=== PATIENT | male | born 1940 | race Caucasian/White ===

== ENCOUNTER 2019-01-07 13:37 | Inpatient (IN) ==
[2019-01-07] MEDS ORDERED: SODIUM CHLORIDE 0.9% 1,000 ML IV STA (14:23)
[2019-01-07] MEDS ORDERED: ONDANSETRON 4 MG/2 ML VIAL IV STA (14:23)
[2019-01-07 14:46] LABS: Basophils % 0.5 % (0.0-0.8); Eosinophils # 0.1 10*3/uL (0.0-0.87); Eosinophils % 1.6 % (0.00-10.9); Hematocrit 40.7 VOL% (42.0-52.0); Hemoglobin 13.4 GM/DL (14.0-18.0); Immature Granulocytes % 0.2 %; Immature Granulocytes Absolute 0.01 #; Lymphocytes # 0.7 10*3/uL (1.4-4.0); Lymphocytes % 10.4 % (21.2-54.2); Mean Corpuscular HGB Conc 32.9 GM/DL (32-36); Mean Corpuscular Volume 90.4 FL (87-102); Mean Platelet Volume 9.7 FL (9.6-12.0); Monocytes % 9.9 % (1.7-12.7); Neutrophils % 77.4 % (38.7-73.9); Platelet Count 229 T/CUMM (130-400); Red Cell Distribution Width 14.9 % (9.3-17.3); White Blood Count 6.4 T/CUMM (4-12)
[2019-01-07 15:03] LABS: Albumin 2.4 G/DL (3.4-5.0); Bilirubin,Total 0.6 MG/DL (0.2-1.0); Calcium 9.1 MG/DL (8.5-10.1)
[2019-01-07] MEDS: SODIUM CHLORIDE 0.9% 1,000 ML IV SCH (16:57)
[2019-01-07] MEDS ORDERED: PROCHLORPERAZINE 10 MG TABLET PO PRN (19:28)
[2019-01-07] MEDS ORDERED: diphenhydrAMINE CAP 25 MG CAPSULE PO PRN (19:28)
[2019-01-07] MEDS: ASPIRIN 325 MG TABLET PO SCH (20:40)
[2019-01-07] MEDS: ATORVASTATIN 40 MG TABLET PO SCH (20:40)
[2019-01-07] MEDS: ONDANSETRON 4 MG/2 ML VIAL IV PRN (20:41)
[2019-01-07] MEDS: CLOPIDOGREL 75 MG TABLET PO SCH (20:41)
[2019-01-08] MEDS: ONDANSETRON 4 MG/2 ML VIAL IV PRN ×3 (01:05→14:12)
[2019-01-08] MEDS: SODIUM CHLORIDE 0.9% 1,000 ML IV SCH ×3 (02:09→20:32)
[2019-01-08 04:20] LABS: Basophils % 0.6 % (0.0-0.8); Eosinophils # 0.2 10*3/uL (0.0-0.87); Eosinophils % 3.8 % (0.00-10.9); Hematocrit 37.3 VOL% (42.0-52.0); Immature Granulocytes Absolute 0.05 #; Lymphocytes # 0.8 10*3/uL (1.4-4.0); Lymphocytes % 16.9 % (21.2-54.2); Mean Corpuscular HGB Conc 32.2 GM/DL (32-36); Mean Corpuscular Volume 91.2 FL (87-102); Monocytes % 14.3 % (1.7-12.7); Neutrophils % 63.4 % (38.7-73.9); Platelet Count 200 T/CUMM (130-400); Red Blood Count 4.09 MC/CUMM (3.8-5.5); Red Cell Distribution Width 14.8 % (9.3-17.3)
[2019-01-08 04:55] LABS: Albumin 2.3 G/DL (3.4-5.0); Bilirubin,Total 0.7 MG/DL (0.2-1.0); Calcium 8.6 MG/DL (8.5-10.1); Osmolality,Calculated 275.5 MOS/KG (273-304); Total Protein 6.4 G/DL (6.4-8.3)
[2019-01-08] MEDS: PANTOPRAZOLE 40 MG TABLET PO SCH (09:27)
[2019-01-08] MEDS: FLUCONAZOLE 100 MG TABLET PO SCH (09:27)
[2019-01-08] MEDS ORDERED: PROCHLORPERAZINE IV ONE (20:00)
[2019-01-08] MEDS ORDERED: DEXAMETHASONE IV ONE (20:00)
[2019-01-08] MEDS ORDERED: SODIUM CHLORIDE 0.9% IV ONE (20:00)
[2019-01-08] MEDS: ASPIRIN 325 MG TABLET PO SCH (20:32)
[2019-01-08] MEDS: CLOPIDOGREL 75 MG TABLET PO SCH (20:32)
[2019-01-08] MEDS: ATORVASTATIN 40 MG TABLET PO SCH (20:32)
[2019-01-09] MEDS: SODIUM CHLORIDE 0.9% 1,000 ML IV SCH (06:36)
[2019-01-09 08:20] LABS: Basophils % 0.6 % (0.0-0.8); Eosinophils # 0.2 10*3/uL (0.0-0.87); Eosinophils % 3.4 % (0.00-10.9); Hematocrit 34.1 VOL% (42.0-52.0); Hemoglobin 11.1 GM/DL (14.0-18.0); Immature Granulocytes % 0.4 %; Immature Granulocytes Absolute 0.02 #; Lymphocytes # 0.5 10*3/uL (1.4-4.0); Lymphocytes % 9.9 % (21.2-54.2); Mean Corpuscular HGB Conc 32.6 GM/DL (32-36); Mean Corpuscular Volume 91.7 FL (87-102); Mean Platelet Volume 9.8 FL (9.6-12.0); Monocytes % 10.3 % (1.7-12.7); Neutrophils % 75.4 % (38.7-73.9); Platelet Count 172 T/CUMM (130-400); Red Blood Count 3.72 MC/CUMM (3.8-5.5); Red Cell Distribution Width 14.8 % (9.3-17.3); White Blood Count 4.8 T/CUMM (4-12)
[2019-01-09 08:32] LABS: Calcium 8.3 MG/DL (8.5-10.1); Osmolality,Calculated 274.5 MOS/KG (273-304)
[2019-01-09] MEDS ORDERED: DEXT 5% NACL 0.45% KCL 20 MEQ 20 MEQ/1,000 ML BAG IV SCH (09:00)
[2019-01-09] MEDS: PANTOPRAZOLE 40 MG TABLET PO SCH (09:43)
[2019-01-09] MEDS: FLUCONAZOLE 100 MG TABLET PO SCH (09:43)
[2019-01-09] MEDS ORDERED: ENOXAPARIN 30 MG/0.3 ML SYRINGE SUBCUT SCH (11:00)
[2019-01-09] MEDS ORDERED: ENOXAPARIN 40 MG/0.4 ML SYRINGE SUBCUT SCH (11:00)
[2019-01-09 12:17] VITALS: BP 130/86
[2019-01-09] MEDS ORDERED: POTASSIUM CHLORIDE 20 MEQ TABLET PO ONE (13:18)
[2019-01-09] MEDS ORDERED: HEPARIN LOCK FLUSH 500 UNIT/5 ML SYRINGE IV ONE (13:50)
== END 2019-01-09 14:30 | disposition home or self-care (01) | DRG 182 ==
LOC: N.ED 13:37 → N.EDINP 13:37 → N.3E 17:25 → N.4E 17:46
PROVIDERS: ADMIT Internal Medicine; ATTEND Internal Medicine

== ENCOUNTER 2019-03-13 10:55 | Inpatient (IN) ==
[2019-03-13] MEDS: DEXT 5% NACL 0.9% KCL 20 MEQ 20 MEQ/1,000 ML BAG IV SCH ×2 (13:47→23:04)
[2019-03-13] MEDS ORDERED: SODIUM CHLORIDE 0.9% 1,000 ML IV SCH (14:00)
[2019-03-13] MEDS: ALBUTEROL/IPRATROPIUM 3 ML NEB RESP TX SCH (19:36)
[2019-03-13] MEDS: MEGESTROL 400 MG/10 ML UDCUP PO SCH (21:00)
[2019-03-14] MEDS: ALBUTEROL/IPRATROPIUM 3 ML NEB RESP TX SCH ×4 (00:38→19:20)
[2019-03-14 05:13] LABS: Calcium 8.8 MG/DL (8.5-10.1); Osmolality,Calculated 278.5 MOS/KG (273-304)
[2019-03-14] MEDS: DEXT 5% NACL 0.9% KCL 20 MEQ 20 MEQ/1,000 ML BAG IV SCH ×3 (06:19→14:57)
[2019-03-14 06:24] LABS: Basophils % 0.6 % (0.0-0.8); Eosinophils % 0.6 % (0.00-10.9); Hematocrit 31.8 VOL% (42.0-52.0); Hemoglobin 10.2 GM/DL (14.0-18.0); Immature Granulocytes % 0.5 %; Immature Granulocytes Absolute 0.03 #; Lymphocytes # 0.8 10*3/uL (1.4-4.0); Lymphocytes % 11.8 % (21.2-54.2); Mean Corpuscular HGB Conc 32.1 GM/DL (32-36); Mean Corpuscular Volume 91.9 FL (87-102); Mean Platelet Volume 10.2 FL (9.6-12.0); Monocytes % 11.5 % (1.7-12.7); Platelet Count 267 T/CUMM (130-400); Red Blood Count 3.46 MC/CUMM (3.8-5.5); Red Cell Distribution Width 14.6 % (9.3-17.3); White Blood Count 6.6 T/CUMM (4-12)
[2019-03-14 06:34] LABS: Alanine Aminotransferase 9 U/L (16-61); Albumin 1.8 G/DL (3.4-5.0); Alkaline Phosphatase 62 U/L (45-117); Aspartate Amino Transferase 15 U/L (0-37); Bilirubin,Total < 0.39 MG/DL (0.2-1.0); Blood Urea Nitrogen 11 MG/DL (7-18); Glucose 150 MG/DL (74-106); Osmolality,Calculated 282.3 MOS/KG (273-304)
[2019-03-14] MEDS: MEGESTROL 400 MG/10 ML UDCUP PO SCH ×2 (08:53→20:52)
[2019-03-14] MEDS ORDERED: FLUCONAZOLE 100 MG TABLET PO SCH (09:00)
[2019-03-14] MEDS: methylPREDNISolone SOD SUC 40 MG/1 ML VIAL IV SCH ×2 (12:09→17:33)
[2019-03-14] MEDS ORDERED: PROCHLORPERAZINE 10 MG TABLET PO PRN (14:04)
[2019-03-14] MEDS ORDERED: diphenhydrAMINE CAP 25 MG CAPSULE PO PRN (14:04)
[2019-03-14] MEDS: FLUCONAZOLE INJ 200 MG in PREMIX 1 EACH IV SCH (14:58)
[2019-03-14] MEDS: PARoxetine 10 MG TABLET PO SCH (14:58)
[2019-03-14] MEDS: DRONABINOL 2.5 MG CAPSULE PO SCH (17:25)
[2019-03-14] MEDS: cefTRIAXone 2,000 MG in SYRINGE 1 EACH IV SCH (17:25)
[2019-03-14] MEDS ORDERED: MAGNESIUM SULF RIDER 4 GM in PREMIX 1 EACH IV PRN (17:54)
[2019-03-14] MEDS: MAGNESIUM SULF RIDER 2 GM in PREMIX 1 EACH IV PRN (19:11)
[2019-03-14] MEDS: ASPIRIN 325 MG TABLET PO SCH (20:52)
[2019-03-15] MEDS: ALBUTEROL/IPRATROPIUM 3 ML NEB RESP TX SCH ×4 (00:20→18:54)
[2019-03-15] MEDS: DEXT 5% NACL 0.9% KCL 20 MEQ 20 MEQ/1,000 ML BAG IV SCH ×2 (00:37→09:02)
[2019-03-15] MEDS: methylPREDNISolone SOD SUC 40 MG/1 ML VIAL IV SCH ×3 (02:14→17:31)
[2019-03-15 05:44] LABS: Basophils % 0.2 % (0.0-0.8); Hematocrit 32.3 VOL% (42.0-52.0); Hemoglobin 10.2 GM/DL (14.0-18.0); Immature Granulocytes % 0.4 %; Immature Granulocytes Absolute 0.02 #; Lymphocytes # 0.3 10*3/uL (1.4-4.0); Lymphocytes % 5.3 % (21.2-54.2); Mean Corpuscular HGB Conc 31.6 GM/DL (32-36); Mean Corpuscular Volume 92.8 FL (87-102); Mean Platelet Volume 9.8 FL (9.6-12.0); Monocytes % 1.5 % (1.7-12.7); Neutrophils % 92.6 % (38.7-73.9); Platelet Count 245 T/CUMM (130-400); Red Blood Count 3.48 MC/CUMM (3.8-5.5); Red Cell Distribution Width 14.3 % (9.3-17.3); White Blood Count 5.3 T/CUMM (4-12)
[2019-03-15 06:18] LABS: Calcium 8.3 MG/DL (8.5-10.1); Osmolality,Calculated 282.5 MOS/KG (273-304)
[2019-03-15 06:28] LABS: Lymphocytes 2 % (20-55); Segmented Neutrophils 98 % (50-85); Total Cells Counted 100
[2019-03-15 06:29] LABS: Platelet Estimate Normal; Polychromasia Few
[2019-03-15] MEDS: PARoxetine 10 MG TABLET PO SCH (09:01)
[2019-03-15] MEDS: MAGNESIUM HYDROXIDE SUSP 30 ML UDCUP PO PRN (09:01)
[2019-03-15] MEDS: DRONABINOL 2.5 MG CAPSULE PO SCH ×2 (09:01→17:28)
[2019-03-15] MEDS: MEGESTROL 400 MG/10 ML UDCUP PO SCH ×2 (09:02→21:10)
[2019-03-15] MEDS: SODIUM CHLORIDE 0.45% 1,000 ML IV SCH ×2 (12:06→23:49)
[2019-03-15] MEDS: FLUCONAZOLE INJ 200 MG in PREMIX 1 EACH IV SCH (13:22)
[2019-03-15] MEDS: cefTRIAXone 2,000 MG in SYRINGE 1 EACH IV SCH (15:11)
[2019-03-15] MEDS: ASPIRIN 325 MG TABLET PO SCH (21:10)
[2019-03-16] MEDS: ALBUTEROL/IPRATROPIUM 3 ML NEB RESP TX SCH ×4 (00:40→19:27)
[2019-03-16] MEDS: methylPREDNISolone SOD SUC 40 MG/1 ML VIAL IV SCH ×3 (03:30→17:38)
[2019-03-16 03:50] LABS: Basophils % 0.1 % (0.0-0.8); Hematocrit 30.4 VOL% (42.0-52.0); Hemoglobin 9.9 GM/DL (14.0-18.0); Immature Granulocytes % 0.8 %; Immature Granulocytes Absolute 0.12 #; Lymphocytes # 0.2 10*3/uL (1.4-4.0); Lymphocytes % 1.4 % (21.2-54.2); Mean Corpuscular HGB Conc 32.6 GM/DL (32-36); Mean Corpuscular Volume 91.8 FL (87-102); Mean Platelet Volume 10.4 FL (9.6-12.0); Monocytes % 3.2 % (1.7-12.7); Neutrophils % 94.5 % (38.7-73.9); Platelet Count 243 T/CUMM (130-400); Red Blood Count 3.31 MC/CUMM (3.8-5.5); Red Cell Distribution Width 14.6 % (9.3-17.3); White Blood Count 15.8 T/CUMM (4-12)
[2019-03-16 04:09] LABS: Calcium 8.8 MG/DL (8.5-10.1); Osmolality,Calculated 280.5 MOS/KG (273-304)
[2019-03-16 05:01] LABS: Hypochromasia Slight; Lymphocytes 2 % (20-55); Segmented Neutrophils 96 % (50-85); Total Cells Counted 100
[2019-03-16 05:02] LABS: Platelet Estimate Normal
[2019-03-16] MEDS: DRONABINOL 2.5 MG CAPSULE PO SCH ×2 (09:26→17:38)
[2019-03-16] MEDS: PARoxetine 10 MG TABLET PO SCH (09:26)
[2019-03-16] MEDS: MEGESTROL 400 MG/10 ML UDCUP PO SCH ×2 (09:26→20:02)
[2019-03-16 11:10] LABS: Apearance,Urine CLEAR (Clear); Bilirubin,Urine Negative (Negative); Blood, Urine Negative (Negative); Glucose,Urine (UA) Negative (Negative); Ketones,Urine Negative (Negative); Mucus,Urine Occasional /LPF (Occasional); Nitrite,Urine Negative (Negative); Protein,Urine Negative; RBC,Urine <1 /HPF (0-4); Urine Color Straw (Yellow); Urine Specific Gravity 1.006 (1.001-1.035); Urine Urobilinogen < 2.0 EU/DL (0.2-1.0)
[2019-03-16] MEDS: FLUCONAZOLE INJ 200 MG in PREMIX 1 EACH IV SCH (12:36)
[2019-03-16] MEDS: cefTRIAXone 2,000 MG in SYRINGE 1 EACH IV SCH (15:24)
[2019-03-16] MEDS: SODIUM CHLORIDE 0.45% 1,000 ML IV SCH (20:02)
[2019-03-16] MEDS: ASPIRIN 325 MG TABLET PO SCH (20:02)
[2019-03-17] MEDS ORDERED: chlorproMAZINE 25 MG TABLET PO PRN ×2 (00:42→08:06)
[2019-03-17] MEDS: ALBUTEROL/IPRATROPIUM 3 ML NEB RESP TX SCH ×4 (00:54→20:00)
[2019-03-17] MEDS: methylPREDNISolone SOD SUC 40 MG/1 ML VIAL IV SCH ×3 (02:03→18:01)
[2019-03-17] MEDS: SODIUM CHLORIDE 0.45% 1,000 ML IV SCH ×2 (05:17→21:17)
[2019-03-17 05:41] LABS: Hematocrit 30.8 VOL% (42.0-52.0); Hemoglobin 10.1 GM/DL (14.0-18.0); Immature Granulocytes % 0.7 %; Immature Granulocytes Absolute 0.09 #; Lymphocytes # 0.2 10*3/uL (1.4-4.0); Lymphocytes % 1.7 % (21.2-54.2); Mean Corpuscular HGB Conc 32.8 GM/DL (32-36); Mean Corpuscular Volume 91.9 FL (87-102); Mean Platelet Volume 10.4 FL (9.6-12.0); Monocytes % 3.1 % (1.7-12.7); Neutrophils % 94.5 % (38.7-73.9); Platelet Count 234 T/CUMM (130-400); Red Blood Count 3.35 MC/CUMM (3.8-5.5); Red Cell Distribution Width 14.8 % (9.3-17.3); White Blood Count 13.8 T/CUMM (4-12)
[2019-03-17 06:04] LABS: Hypochromasia Slight; Lymphocytes 5 % (20-55); Platelet Estimate Normal; Polychromasia Few; Segmented Neutrophils 94 % (50-85); Total Cells Counted 100
[2019-03-17 06:05] LABS: Calcium 8.9 MG/DL (8.5-10.1); Osmolality,Calculated 280.4 MOS/KG (273-304)
[2019-03-17] MEDS: PARoxetine 10 MG TABLET PO SCH (08:49)
[2019-03-17] MEDS: DRONABINOL 2.5 MG CAPSULE PO SCH ×2 (08:49→18:01)
[2019-03-17] MEDS: MEGESTROL 400 MG/10 ML UDCUP PO SCH ×2 (08:49→21:15)
[2019-03-17] MEDS: FLUCONAZOLE INJ 200 MG in PREMIX 1 EACH IV SCH (14:29)
[2019-03-17] MEDS: cefTRIAXone 2,000 MG in SYRINGE 1 EACH IV SCH (15:58)
[2019-03-17] MEDS: ASPIRIN 325 MG TABLET PO SCH (21:15)
[2019-03-18] MEDS: ALBUTEROL/IPRATROPIUM 3 ML NEB RESP TX SCH ×4 (01:26→19:49)
[2019-03-18] MEDS: methylPREDNISolone SOD SUC 40 MG/1 ML VIAL IV SCH ×3 (02:57→17:42)
[2019-03-18 04:52] LABS: Basophils % 0.1 % (0.0-0.8); Hematocrit 30.4 VOL% (42.0-52.0); Hemoglobin 9.6 GM/DL (14.0-18.0); Immature Granulocytes % 0.8 %; Immature Granulocytes Absolute 0.08 #; Lymphocytes # 0.2 10*3/uL (1.4-4.0); Lymphocytes % 1.6 % (21.2-54.2); Mean Corpuscular HGB Conc 31.6 GM/DL (32-36); Mean Corpuscular Volume 93.5 FL (87-102); Mean Platelet Volume 10.5 FL (9.6-12.0); Monocytes % 5.8 % (1.7-12.7); Neutrophils % 91.7 % (38.7-73.9); Platelet Count 210 T/CUMM (130-400); Red Blood Count 3.25 MC/CUMM (3.8-5.5); Red Cell Distribution Width 14.8 % (9.3-17.3); White Blood Count 10.5 T/CUMM (4-12)
[2019-03-18 05:27] LABS: Band Neutrophils 1 % (0-10); Lymphocytes 3 % (20-55); Segmented Neutrophils 96 % (50-85); Total Cells Counted 100
[2019-03-18 05:32] LABS: Calcium 8.5 MG/DL (8.5-10.1); Osmolality,Calculated 284.4 MOS/KG (273-304)
[2019-03-18 05:39] LABS: Platelet Estimate Normal
[2019-03-18] MEDS: ONDANSETRON 4 MG/2 ML VIAL IV PRN (08:41)
[2019-03-18] MEDS: DRONABINOL 2.5 MG CAPSULE PO SCH ×2 (09:05→21:35)
[2019-03-18] MEDS: SOTALOL 80 MG TABLET PO SCH ×2 (09:11→21:35)
[2019-03-18] MEDS: PARoxetine 10 MG TABLET PO SCH (09:23)
[2019-03-18] MEDS: MEGESTROL 400 MG/10 ML UDCUP PO SCH ×2 (09:23→21:35)
[2019-03-18] MEDS: DEXT 5% NACL 0.45% KCL 40 MEQ 40 MEQ/1,000 ML BAG IV SCH (09:45)
[2019-03-18] MEDS: FLUCONAZOLE INJ 200 MG in PREMIX 1 EACH IV SCH (14:22)
[2019-03-18] MEDS: cefTRIAXone 2,000 MG in SYRINGE 1 EACH IV SCH (16:50)
[2019-03-18] MEDS: MAGNESIUM HYDROXIDE SUSP 30 ML UDCUP PO PRN (21:35)
[2019-03-18] MEDS: ASPIRIN 325 MG TABLET PO SCH (21:35)
[2019-03-19] MEDS: ALBUTEROL/IPRATROPIUM 3 ML NEB RESP TX SCH ×4 (00:21→19:27)
[2019-03-19] MEDS: methylPREDNISolone SOD SUC 40 MG/1 ML VIAL IV SCH ×3 (03:08→17:31)
[2019-03-19] MEDS: DEXT 5% NACL 0.45% KCL 40 MEQ 40 MEQ/1,000 ML BAG IV SCH ×2 (03:08→17:32)
[2019-03-19 07:14] LABS: Hemoglobin 11.3 GM/DL (14.0-18.0); Immature Granulocytes % 0.8 %; Lymphocytes # 0.3 10*3/uL (1.4-4.0); Lymphocytes % 2.3 % (21.2-54.2); Mean Corpuscular HGB Conc 33.2 GM/DL (32-36); Mean Corpuscular Volume 91.9 FL (87-102); Mean Platelet Volume 10.4 FL (9.6-12.0); Monocytes % 4.6 % (1.7-12.7); Neutrophils % 92.3 % (38.7-73.9); Platelet Count 247 T/CUMM (130-400); Red Cell Distribution Width 14.6 % (9.3-17.3); White Blood Count 11.8 T/CUMM (4-12)
[2019-03-19 07:36] LABS: Alanine Aminotransferase 14 U/L (16-61); Albumin 1.8 G/DL (3.4-5.0); Alkaline Phosphatase 65 U/L (45-117); Aspartate Amino Transferase 16 U/L (0-37); Bilirubin,Total < 0.39 MG/DL (0.2-1.0); Blood Urea Nitrogen 13 MG/DL (7-18); Calcium 8.7 MG/DL (8.5-10.1); Glucose 158 MG/DL (74-106); Osmolality,Calculated 279.5 MOS/KG (273-304); Total Protein 5.5 G/DL (6.4-8.3)
[2019-03-19 07:37] LABS: Hypochromasia 1+; Lymphocytes 4 % (20-55); Platelet Estimate Adequate; Segmented Neutrophils 93 % (50-85); Total Cells Counted 100
[2019-03-19 07:39] LABS: Calcium 8.8 MG/DL (8.5-10.1); Osmolality,Calculated 279.5 MOS/KG (273-304)
[2019-03-19] MEDS: SOTALOL 80 MG TABLET PO SCH (09:36)
[2019-03-19] MEDS: METOCLOPRAMIDE 5 MG TABLET PO SCH ×2 (09:36→21:23)
[2019-03-19] MEDS: DRONABINOL 2.5 MG CAPSULE PO SCH ×2 (09:36→17:27)
[2019-03-19] MEDS: MEGESTROL 400 MG/10 ML UDCUP PO SCH ×2 (09:36→21:23)
[2019-03-19] MEDS: PARoxetine 10 MG TABLET PO SCH (09:39)
[2019-03-19] MEDS: MAGNESIUM HYDROXIDE SUSP 30 ML UDCUP PO PRN (13:16)
[2019-03-19] MEDS: FLUCONAZOLE INJ 200 MG in PREMIX 1 EACH IV SCH (13:16)
[2019-03-19] MEDS: cefTRIAXone 2,000 MG in SYRINGE 1 EACH IV SCH (15:08)
[2019-03-20] MEDS: ALBUTEROL/IPRATROPIUM 3 ML NEB RESP TX SCH ×4 (00:25→19:44)
[2019-03-20] MEDS: methylPREDNISolone SOD SUC 40 MG/1 ML VIAL IV SCH ×3 (03:02→17:30)
[2019-03-20] MEDS: DEXT 5% NACL 0.45% KCL 40 MEQ 40 MEQ/1,000 ML BAG IV SCH ×3 (05:45→21:21)
[2019-03-20 06:02] LABS: Basophils % 0.1 % (0.0-0.8); Hematocrit 37.3 VOL% (42.0-52.0); Hemoglobin 12.2 GM/DL (14.0-18.0); Immature Granulocytes % 0.6 %; Immature Granulocytes Absolute 0.07 #; Lymphocytes # 0.3 10*3/uL (1.4-4.0); Mean Corpuscular HGB Conc 32.7 GM/DL (32-36); Mean Corpuscular Volume 91.2 FL (87-102); Mean Platelet Volume 10.5 FL (9.6-12.0); Monocytes % 5.6 % (1.7-12.7); Neutrophils % 91.7 % (38.7-73.9); Platelet Count 242 T/CUMM (130-400); Red Blood Count 4.09 MC/CUMM (3.8-5.5); Red Cell Distribution Width 14.6 % (9.3-17.3); White Blood Count 12.4 T/CUMM (4-12)
[2019-03-20 06:32] LABS: Lymphocytes 2 % (20-55); Platelet Estimate Normal; Polychromasia Slight; Segmented Neutrophils 95 % (50-85); Total Cells Counted 100
[2019-03-20 06:36] LABS: Calcium 8.5 MG/DL (8.5-10.1); Osmolality,Calculated 283.5 MOS/KG (273-304)
[2019-03-20] MEDS ORDERED: TUBERCULIN SKIN TEST 0.1 ML SYRINGE INTRADERM ONE ×2 (07:23→16:30)
[2019-03-20] MEDS: DRONABINOL 2.5 MG CAPSULE PO SCH ×2 (09:10→16:54)
[2019-03-20] MEDS: SOTALOL 80 MG TABLET PO SCH (09:10)
[2019-03-20] MEDS: MEGESTROL 400 MG/10 ML UDCUP PO SCH ×2 (09:10→21:14)
[2019-03-20] MEDS: METOCLOPRAMIDE 5 MG TABLET PO SCH ×2 (09:10→21:14)
[2019-03-20] MEDS: PARoxetine 10 MG TABLET PO SCH (09:10)
[2019-03-20] MEDS: ASPIRIN 325 MG TABLET PO SCH ×2 (09:26→21:14)
[2019-03-20] MEDS: FLUCONAZOLE INJ 200 MG in PREMIX 1 EACH IV SCH (14:24)
[2019-03-20] MEDS: cefTRIAXone 2,000 MG in SYRINGE 1 EACH IV SCH (16:55)
[2019-03-21] MEDS: ALBUTEROL/IPRATROPIUM 3 ML NEB RESP TX SCH ×4 (00:19→20:17)
[2019-03-21] MEDS: methylPREDNISolone SOD SUC 40 MG/1 ML VIAL IV SCH ×3 (03:02→18:37)
[2019-03-21 04:58] LABS: Basophils % 0.1 % (0.0-0.8); Hematocrit 37.1 VOL% (42.0-52.0); Hemoglobin 12.3 GM/DL (14.0-18.0); Immature Granulocytes % 0.6 %; Immature Granulocytes Absolute 0.07 #; Lymphocytes # 0.3 10*3/uL (1.4-4.0); Lymphocytes % 2.5 % (21.2-54.2); Mean Corpuscular HGB Conc 33.2 GM/DL (32-36); Mean Corpuscular Volume 91.6 FL (87-102); Mean Platelet Volume 10.4 FL (9.6-12.0); Monocytes % 6.7 % (1.7-12.7); Neutrophils % 90.1 % (38.7-73.9); Platelet Count 231 T/CUMM (130-400); Red Blood Count 4.05 MC/CUMM (3.8-5.5); Red Cell Distribution Width 14.6 % (9.3-17.3); White Blood Count 12.5 T/CUMM (4-12)
[2019-03-21 05:21] LABS: Hypochromasia 1+; Lymphocytes 2 % (20-55); Platelet Estimate Adequate; Segmented Neutrophils 94 % (50-85); Total Cells Counted 100
[2019-03-21 05:29] LABS: Calcium 8.4 MG/DL (8.5-10.1); Osmolality,Calculated 280.7 MOS/KG (273-304)
[2019-03-21 05:31] LABS: Albumin 1.8 G/DL (3.4-5.0); Bilirubin,Total 0.8 MG/DL (0.2-1.0); Calcium 8.4 MG/DL (8.5-10.1); Osmolality,Calculated 282.5 MOS/KG (273-304); Total Protein 5.3 G/DL (6.4-8.3)
[2019-03-21] MEDS: DEXT 5% NACL 0.45% KCL 40 MEQ 40 MEQ/1,000 ML BAG IV SCH (05:34)
[2019-03-21] MEDS: SOTALOL 80 MG TABLET PO SCH (08:57)
[2019-03-21] MEDS: METOCLOPRAMIDE 5 MG TABLET PO SCH ×2 (09:00→21:35)
[2019-03-21] MEDS: PARoxetine 10 MG TABLET PO SCH (09:00)
[2019-03-21] MEDS ORDERED: SOTALOL 80 MG TABLET PO SCH (09:00)
[2019-03-21] MEDS: DRONABINOL 2.5 MG CAPSULE PO SCH ×2 (09:01→17:08)
[2019-03-21] MEDS: MEGESTROL 400 MG/10 ML UDCUP PO SCH ×2 (09:02→21:35)
[2019-03-21] MEDS: FLUCONAZOLE INJ 200 MG in PREMIX 1 EACH IV SCH (14:08)
[2019-03-21] MEDS: cefTRIAXone 2,000 MG in SYRINGE 1 EACH IV SCH (17:05)
[2019-03-21] MEDS: METOPROLOL TARTRATE 50 MG TABLET PO SCH (21:35)
[2019-03-21] MEDS: ASPIRIN 325 MG TABLET PO SCH (21:35)
[2019-03-22] MEDS: ALBUTEROL/IPRATROPIUM 3 ML NEB RESP TX SCH ×4 (01:25→19:23)
[2019-03-22] MEDS: DEXT 5% NACL 0.45% KCL 40 MEQ 40 MEQ/1,000 ML BAG IV SCH ×3 (01:28→14:00)
[2019-03-22] MEDS: methylPREDNISolone SOD SUC 40 MG/1 ML VIAL IV SCH ×3 (01:31→17:35)
[2019-03-22 05:00] LABS: Basophils % 0.2 % (0.0-0.8); Hematocrit 38.5 VOL% (42.0-52.0); Hemoglobin 12.6 GM/DL (14.0-18.0); Immature Granulocytes % 0.8 %; Immature Granulocytes Absolute 0.11 #; Lymphocytes # 0.3 10*3/uL (1.4-4.0); Lymphocytes % 2.1 % (21.2-54.2); Mean Corpuscular HGB Conc 32.7 GM/DL (32-36); Mean Corpuscular Volume 91.9 FL (87-102); Mean Platelet Volume 10.1 FL (9.6-12.0); Neutrophils % 91.9 % (38.7-73.9); Platelet Count 228 T/CUMM (130-400); Red Blood Count 4.19 MC/CUMM (3.8-5.5); Red Cell Distribution Width 14.8 % (9.3-17.3)
[2019-03-22 05:24] LABS: Albumin 1.8 G/DL (3.4-5.0); Bilirubin,Total 0.5 MG/DL (0.2-1.0); Calcium 8.4 MG/DL (8.5-10.1); Osmolality,Calculated 283.5 MOS/KG (273-304); Total Protein 5.4 G/DL (6.4-8.3)
[2019-03-22 06:45] LABS: Segmented Neutrophils 97 % (50-85); Total Cells Counted 100
[2019-03-22 06:46] LABS: Microcytosis Slight; Polychromasia Slight
[2019-03-22 06:47] LABS: Platelet Estimate Normal; Spherocytes Slight
[2019-03-22] MEDS: DRONABINOL 2.5 MG CAPSULE PO SCH ×2 (09:05→16:38)
[2019-03-22] MEDS: PARoxetine 10 MG TABLET PO SCH (09:06)
[2019-03-22] MEDS: METOCLOPRAMIDE 5 MG TABLET PO SCH ×2 (09:06→21:17)
[2019-03-22] MEDS: MEGESTROL 400 MG/10 ML UDCUP PO SCH ×2 (09:07→21:15)
[2019-03-22] MEDS: METOPROLOL TARTRATE 50 MG TABLET PO SCH ×2 (09:07→21:18)
[2019-03-22] MEDS: MAGNESIUM HYDROXIDE SUSP 30 ML UDCUP PO PRN (09:09)
[2019-03-22] MEDS ORDERED: MAGNESIUM CITRATE 300 ML BOTTLE PO ONE (10:15)
[2019-03-22] MEDS ORDERED: GLYCERIN ADULT SUPP RECTAL ONE (10:16)
[2019-03-22] MEDS: SUCRALFATE 1 GM/10 ML UDCUP PO SCH ×3 (12:10→21:13)
[2019-03-22] MEDS: ASPIRIN 325 MG TABLET PO SCH (21:16)
[2019-03-22] MEDS: BISACODYL 5 MG TABLET PO SCH (21:16)
[2019-03-23] MEDS: ALBUTEROL/IPRATROPIUM 3 ML NEB RESP TX SCH ×4 (00:13→19:20)
[2019-03-23] MEDS: DEXT 5% NACL 0.45% KCL 40 MEQ 40 MEQ/1,000 ML BAG IV SCH ×2 (03:16→16:43)
[2019-03-23] MEDS: methylPREDNISolone SOD SUC 40 MG/1 ML VIAL IV SCH ×3 (03:17→17:30)
[2019-03-23 06:19] LABS: Basophils % 0.1 % (0.0-0.8); Hematocrit 37.3 VOL% (42.0-52.0); Hemoglobin 12.3 GM/DL (14.0-18.0); Immature Granulocytes % 0.9 %; Immature Granulocytes Absolute 0.12 #; Lymphocytes # 0.2 10*3/uL (1.4-4.0); Lymphocytes % 1.8 % (21.2-54.2); Mean Corpuscular Volume 91.4 FL (87-102); Mean Platelet Volume 10.1 FL (9.6-12.0); Monocytes % 5.8 % (1.7-12.7); Neutrophils % 91.4 % (38.7-73.9); Platelet Count 191 T/CUMM (130-400); Red Blood Count 4.08 MC/CUMM (3.8-5.5); Red Cell Distribution Width 14.8 % (9.3-17.3); White Blood Count 13.3 T/CUMM (4-12)
[2019-03-23 07:00] LABS: Alanine Aminotransferase 18 U/L (16-61); Albumin 1.8 G/DL (3.4-5.0); Alkaline Phosphatase 65 U/L (45-117); Aspartate Amino Transferase 14 U/L (0-37); Bilirubin,Total < 0.39 MG/DL (0.2-1.0); Blood Urea Nitrogen 18 MG/DL (7-18); Calcium 8.2 MG/DL (8.5-10.1); Glucose 183 MG/DL (74-106); Osmolality,Calculated 276.1 MOS/KG (273-304); Total Protein 5.2 G/DL (6.4-8.3)
[2019-03-23 07:23] LABS: Lymphocytes 4 % (20-55); Segmented Neutrophils 92 % (50-85); Total Cells Counted 100
[2019-03-23 07:24] LABS: Anisocytosis 1+; Hypersegmented Neutrophil Few; Platelet Estimate Normal
[2019-03-23] MEDS: SUCRALFATE 1 GM/10 ML UDCUP PO SCH ×4 (09:07→21:57)
[2019-03-23] MEDS: DRONABINOL 2.5 MG CAPSULE PO SCH ×2 (09:08→16:42)
[2019-03-23] MEDS: MAGNESIUM HYDROXIDE SUSP 30 ML UDCUP PO PRN (09:08)
[2019-03-23] MEDS: PARoxetine 10 MG TABLET PO SCH (09:08)
[2019-03-23] MEDS: METOCLOPRAMIDE 5 MG TABLET PO SCH ×2 (09:08→21:57)
[2019-03-23] MEDS: METOPROLOL TARTRATE 50 MG TABLET PO SCH ×2 (09:09→22:00)
[2019-03-23] MEDS: BISACODYL 5 MG TABLET PO SCH ×2 (09:09→21:57)
[2019-03-23] MEDS: MEGESTROL 400 MG/10 ML UDCUP PO SCH ×2 (09:09→22:01)
[2019-03-23] MEDS: ONDANSETRON 4 MG/2 ML VIAL IV PRN (17:26)
[2019-03-23] MEDS: ASPIRIN 325 MG TABLET PO SCH (21:58)
[2019-03-24] MEDS: ALBUTEROL/IPRATROPIUM 3 ML NEB RESP TX SCH ×4 (02:17→19:06)
[2019-03-24] MEDS: methylPREDNISolone SOD SUC 40 MG/1 ML VIAL IV SCH ×3 (02:44→17:43)
[2019-03-24 03:26] LABS: Basophils % 0.1 % (0.0-0.8); Hematocrit 38.1 VOL% (42.0-52.0); Hemoglobin 12.2 GM/DL (14.0-18.0); Immature Granulocytes % 0.7 %; Lymphocytes # 0.3 10*3/uL (1.4-4.0); Mean Corpuscular Volume 93.6 FL (87-102); Mean Platelet Volume 9.7 FL (9.6-12.0); Monocytes % 5.9 % (1.7-12.7); Neutrophils % 91.3 % (38.7-73.9); Platelet Count 196 T/CUMM (130-400); Red Blood Count 4.07 MC/CUMM (3.8-5.5); Red Cell Distribution Width 15.1 % (9.3-17.3); White Blood Count 14.7 T/CUMM (4-12)
[2019-03-24 03:55] LABS: Albumin 1.8 G/DL (3.4-5.0); Bilirubin,Total 0.6 MG/DL (0.2-1.0); Calcium 7.9 MG/DL (8.5-10.1); Osmolality,Calculated 282.8 MOS/KG (273-304); Total Protein 5.1 G/DL (6.4-8.3)
[2019-03-24 04:17] LABS: Anisocytosis 1+; Band Neutrophils 1 % (0-10); Lymphocytes 3 % (20-55); Platelet Estimate Normal; Segmented Neutrophils 95 % (50-85); Total Cells Counted 100
[2019-03-24] MEDS: DEXT 5% NACL 0.45% KCL 40 MEQ 40 MEQ/1,000 ML BAG IV SCH ×2 (08:55→21:36)
[2019-03-24] MEDS: MEGESTROL 400 MG/10 ML UDCUP PO SCH ×2 (08:55→21:38)
[2019-03-24] MEDS: DRONABINOL 2.5 MG CAPSULE PO SCH ×2 (08:55→16:37)
[2019-03-24] MEDS: METOPROLOL TARTRATE 50 MG TABLET PO SCH ×2 (08:56→21:37)
[2019-03-24] MEDS: PARoxetine 10 MG TABLET PO SCH (08:56)
[2019-03-24] MEDS: BISACODYL 5 MG TABLET PO SCH ×2 (08:56→21:37)
[2019-03-24] MEDS: SUCRALFATE 1 GM/10 ML UDCUP PO SCH ×4 (08:56→21:37)
[2019-03-24] MEDS: METOCLOPRAMIDE 5 MG TABLET PO SCH ×2 (08:56→21:37)
[2019-03-24] MEDS ORDERED: COCAINE SUBSTITUTE 30 ML BOTTLE TOP ONE (11:12)
[2019-03-24] MEDS: ASPIRIN 325 MG TABLET PO SCH (21:37)
[2019-03-25] MEDS: ALBUTEROL/IPRATROPIUM 3 ML NEB RESP TX SCH ×4 (01:20→19:21)
[2019-03-25] MEDS: methylPREDNISolone SOD SUC 40 MG/1 ML VIAL IV SCH ×3 (02:37→18:39)
[2019-03-25 05:40] LABS: Basophils % 0.1 % (0.0-0.8); Hematocrit 34.8 VOL% (42.0-52.0); Hemoglobin 11.3 GM/DL (14.0-18.0); Immature Granulocytes % 0.9 %; Immature Granulocytes Absolute 0.14 #; Lymphocytes # 0.2 10*3/uL (1.4-4.0); Mean Corpuscular HGB Conc 32.5 GM/DL (32-36); Mean Corpuscular Volume 93.3 FL (87-102); Mean Platelet Volume 10.2 FL (9.6-12.0); Platelet Count 175 T/CUMM (130-400); Red Blood Count 3.73 MC/CUMM (3.8-5.5); Red Cell Distribution Width 15.1 % (9.3-17.3); White Blood Count 15.5 T/CUMM (4-12)
[2019-03-25 05:53] LABS: Alanine Aminotransferase 20 U/L (16-61); Albumin 1.8 G/DL (3.4-5.0); Alkaline Phosphatase 65 U/L (45-117); Aspartate Amino Transferase 15 U/L (0-37); Bilirubin,Total < 0.39 MG/DL (0.2-1.0); Blood Urea Nitrogen 20 MG/DL (7-18); Calcium 7.9 MG/DL (8.5-10.1); Glucose 324 MG/DL (74-106); Total Protein 4.6 G/DL (6.4-8.3)
[2019-03-25 06:08] LABS: Band Neutrophils 1 % (0-10); Hypochromasia 1+; Lymphocytes 1 % (20-55); Microcytosis Slight; Segmented Neutrophils 97 % (50-85); Total Cells Counted 100
[2019-03-25 06:09] LABS: Platelet Estimate Adequate
[2019-03-25] MEDS ORDERED: LACTULOSE 20 GM/30 ML UDCUP PO ONE (08:25)
[2019-03-25] MEDS: DRONABINOL 2.5 MG CAPSULE PO SCH ×2 (08:47→17:23)
[2019-03-25] MEDS: PARoxetine 10 MG TABLET PO SCH (08:48)
[2019-03-25] MEDS: METOCLOPRAMIDE 5 MG TABLET PO SCH (08:48)
[2019-03-25] MEDS: METOPROLOL TARTRATE 50 MG TABLET PO SCH ×2 (08:48→21:21)
[2019-03-25] MEDS: BISACODYL 5 MG TABLET PO SCH (08:49)
[2019-03-25] MEDS: SUCRALFATE 1 GM/10 ML UDCUP PO SCH ×4 (08:51→21:20)
[2019-03-25] MEDS: MEGESTROL 400 MG/10 ML UDCUP PO SCH ×2 (08:51→21:21)
[2019-03-25] MEDS: DEXT 5% NACL 0.45% KCL 40 MEQ 40 MEQ/1,000 ML BAG IV SCH (08:53)
[2019-03-25] MEDS ORDERED: DEXT 5% NACL 0.45% KCL 20 MEQ 20 MEQ/1,000 ML BAG IV SCH (11:30)
[2019-03-25] MEDS: ONDANSETRON 4 MG/2 ML VIAL IV PRN (16:35)
[2019-03-25] MEDS ORDERED: MINERAL OIL 30 ML UDCUP PO ONE (16:57)
[2019-03-25] MEDS ORDERED: POLYETHYLENE GLYCOL POWDER 17 GM PACK PO SCH (17:00)
[2019-03-25] MEDS ORDERED: LACTULOSE 20 GM/30 ML UDCUP PO SCH ×2 (17:00→21:00)
[2019-03-25] MEDS: SODIUM CHLORIDE 0.45% 1,000 ML IV SCH (17:24)
[2019-03-25] MEDS: ASPIRIN 325 MG TABLET PO SCH (21:20)
[2019-03-25] MEDS: DOCUSATE SODIUM 100 MG CAPSULE PO SCH (21:21)
[2019-03-25] MEDS: SENNA 8.6 MG TABLET PO SCH (21:48)
[2019-03-26] MEDS: ALBUTEROL/IPRATROPIUM 3 ML NEB RESP TX SCH ×4 (00:47→19:38)
[2019-03-26 04:50] LABS: Basophils % 0.1 % (0.0-0.8); Hematocrit 32.9 VOL% (42.0-52.0); Hemoglobin 10.8 GM/DL (14.0-18.0); Immature Granulocytes % 0.8 %; Immature Granulocytes Absolute 0.12 #; Lymphocytes # 0.2 10*3/uL (1.4-4.0); Lymphocytes % 1.3 % (21.2-54.2); Mean Corpuscular HGB Conc 32.8 GM/DL (32-36); Mean Platelet Volume 9.7 FL (9.6-12.0); Monocytes % 4.7 % (1.7-12.7); Neutrophils % 93.1 % (38.7-73.9); Platelet Count 156 T/CUMM (130-400); Red Cell Distribution Width 15.5 % (9.3-17.3); White Blood Count 15.8 T/CUMM (4-12)
[2019-03-26 05:15] LABS: Alanine Aminotransferase 18 U/L (16-61); Albumin 1.5 G/DL (3.4-5.0); Alkaline Phosphatase 53 U/L (45-117); Aspartate Amino Transferase 14 U/L (0-37); Bilirubin,Total < 0.39 MG/DL (0.2-1.0); Blood Urea Nitrogen 16 MG/DL (7-18); Glucose 150 MG/DL (74-106); Osmolality,Calculated 271.2 MOS/KG (273-304)
[2019-03-26 05:23] LABS: Free T4 (Free Thyroxine) 0.97 NG/DL (0.76-1.46); Thyroid Stimulating Hormone 0.687 uIU/ml (0.358-3.74)
[2019-03-26 05:25] LABS: Hypochromasia 1+; Microcytosis Slight; Platelet Estimate Normal; Segmented Neutrophils 97 % (50-85); Total Cells Counted 100
[2019-03-26] MEDS ORDERED: MAGNESIUM SULF RIDER 2 GM in PREMIX 1 EACH IV ONE ×2 (09:14→16:00)
[2019-03-26] MEDS ORDERED: POTASSIUM CHLORIDE 20 MEQ TABLET PO ONE (09:16)
[2019-03-26] MEDS: POLYETHYLENE GLYCOL POWDER 17 GM PACK PO SCH ×2 (09:22→20:22)
[2019-03-26] MEDS: DOCUSATE SODIUM 100 MG CAPSULE PO SCH ×2 (09:23→20:22)
[2019-03-26] MEDS: METOPROLOL TARTRATE 50 MG TABLET PO SCH (09:23)
[2019-03-26] MEDS: DRONABINOL 2.5 MG CAPSULE PO SCH ×2 (09:23→16:23)
[2019-03-26] MEDS: PARoxetine 10 MG TABLET PO SCH (09:24)
[2019-03-26] MEDS: MEGESTROL 400 MG/10 ML UDCUP PO SCH ×2 (09:26→20:22)
[2019-03-26] MEDS: SUCRALFATE 1 GM/10 ML UDCUP PO SCH ×4 (09:27→20:22)
[2019-03-26] MEDS: MAGNESIUM HYDROXIDE SUSP 30 ML UDCUP PO PRN (09:28)
[2019-03-26] MEDS ORDERED: METOPROLOL TARTRATE 25 MG TABLET PO ONE (09:52)
[2019-03-26] MEDS: SODIUM CHLORIDE 0.45% 1,000 ML IV SCH (10:29)
[2019-03-26] MEDS: LINACLOTIDE 145 MCG CAPSULE PO SCH (10:30)
[2019-03-26] MEDS: ASPIRIN 325 MG TABLET PO SCH (20:22)
[2019-03-26] MEDS: SENNA 8.6 MG TABLET PO SCH (20:23)
[2019-03-26] MEDS: LACTULOSE 20 GM/30 ML UDCUP PO SCH (20:23)
[2019-03-26] MEDS: METOPROLOL TARTRATE 25 MG TABLET PO SCH (20:27)
[2019-03-27] MEDS: ALBUTEROL/IPRATROPIUM 3 ML NEB RESP TX SCH ×4 (00:49→19:26)
[2019-03-27 04:48] LABS: Basophils % 0.1 % (0.0-0.8); Eosinophils % 0.1 % (0.00-10.9); Hematocrit 35.7 VOL% (42.0-52.0); Hemoglobin 11.9 GM/DL (14.0-18.0); Immature Granulocytes % 0.9 %; Immature Granulocytes Absolute 0.14 #; Lymphocytes # 0.4 10*3/uL (1.4-4.0); Lymphocytes % 2.5 % (21.2-54.2); Mean Corpuscular HGB Conc 33.3 GM/DL (32-36); Mean Corpuscular Volume 92.5 FL (87-102); Mean Platelet Volume 9.9 FL (9.6-12.0); Monocytes % 8.2 % (1.7-12.7); Neutrophils % 88.2 % (38.7-73.9); Platelet Count 152 T/CUMM (130-400); Red Blood Count 3.86 MC/CUMM (3.8-5.5); Red Cell Distribution Width 15.8 % (9.3-17.3); White Blood Count 16.3 T/CUMM (4-12)
[2019-03-27 05:15] LABS: Calcium 7.6 MG/DL (8.5-10.1); Osmolality,Calculated 282.3 MOS/KG (273-304)
[2019-03-27 05:16] LABS: Hypochromasia Slight; Lymphocytes 5 % (20-55); Microcytosis Slight; Platelet Estimate Adequate; Segmented Neutrophils 94 % (50-85); Total Cells Counted 100
[2019-03-27] MEDS ORDERED: miSOPROStol 200 MCG TABLET PO SCH (08:00)
[2019-03-27] MEDS: POLYETHYLENE GLYCOL POWDER 17 GM PACK PO SCH ×3 (08:23→16:05)
[2019-03-27] MEDS: METOPROLOL TARTRATE 25 MG TABLET PO SCH (08:25)
[2019-03-27] MEDS: PARoxetine 10 MG TABLET PO SCH (08:26)
[2019-03-27] MEDS: LINACLOTIDE 145 MCG CAPSULE PO SCH (08:26)
[2019-03-27] MEDS: DOCUSATE SODIUM 100 MG CAPSULE PO SCH ×2 (08:26→21:00)
[2019-03-27] MEDS: POTASSIUM CHLORIDE 20 MEQ TABLET PO SCH (08:26)
[2019-03-27] MEDS: MAGNESIUM OXIDE 400 MG TABLET PO SCH (08:26)
[2019-03-27] MEDS: DRONABINOL 2.5 MG CAPSULE PO SCH ×2 (08:27→17:54)
[2019-03-27] MEDS: predniSONE 20 MG TABLET PO SCH (08:27)
[2019-03-27] MEDS: miSOPROStol 200 MCG TABLET PO SCH ×4 (08:27→21:01)
[2019-03-27] MEDS: MEGESTROL 400 MG/10 ML UDCUP PO SCH ×2 (08:38→21:01)
[2019-03-27] MEDS: SUCRALFATE 1 GM/10 ML UDCUP PO SCH ×4 (08:38→21:00)
[2019-03-27] MEDS: LACTULOSE 20 GM/30 ML UDCUP PO SCH ×2 (08:40→21:00)
[2019-03-27] MEDS: METOPROLOL TARTRATE 100 MG TABLET PO SCH ×2 (12:43→21:01)
[2019-03-27] MEDS: ASPIRIN 325 MG TABLET PO SCH (21:00)
[2019-03-27] MEDS: CYPROHEPTADINE 4 MG TABLET PO SCH (21:01)
[2019-03-28] MEDS: ALBUTEROL/IPRATROPIUM 3 ML NEB RESP TX SCH ×4 (00:33→19:10)
[2019-03-28] MEDS ORDERED: HEPARIN LOCK FLUSH 500 UNIT/5 ML SYRINGE IV ONE (04:21)
[2019-03-28 05:22] LABS: Basophils % 0.2 % (0.0-0.8); Eosinophils % 0.1 % (0.00-10.9); Hematocrit 34.2 VOL% (42.0-52.0); Hemoglobin 11.5 GM/DL (14.0-18.0); Immature Granulocytes Absolute 0.16 #; Lymphocytes # 0.6 10*3/uL (1.4-4.0); Lymphocytes % 3.5 % (21.2-54.2); Mean Corpuscular HGB Conc 33.6 GM/DL (32-36); Mean Corpuscular Volume 92.7 FL (87-102); Mean Platelet Volume 9.8 FL (9.6-12.0); Neutrophils % 87.2 % (38.7-73.9); Platelet Count 152 T/CUMM (130-400); Red Blood Count 3.69 MC/CUMM (3.8-5.5); Red Cell Distribution Width 15.8 % (9.3-17.3); White Blood Count 16.6 T/CUMM (4-12)
[2019-03-28 05:42] LABS: Calcium 7.6 MG/DL (8.5-10.1); Osmolality,Calculated 275.7 MOS/KG (273-304)
[2019-03-28 05:51] LABS: Band Neutrophils 3 % (0-10); Eosinophils 1 % (0-10); Hypochromasia 2+; Lymphocytes 4 % (20-55); Platelet Estimate Adequate; Segmented Neutrophils 82 % (50-85); Total Cells Counted 100
[2019-03-28 07:57] LABS: Albumin 1.6 G/DL (3.4-5.0); Bilirubin,Total 0.4 MG/DL (0.2-1.0); Calcium 7.2 MG/DL (8.5-10.1); Osmolality,Calculated 275.7 MOS/KG (273-304); Total Protein 4.6 G/DL (6.4-8.3)
[2019-03-28] MEDS: POLYETHYLENE GLYCOL POWDER 17 GM PACK PO SCH (09:25)
[2019-03-28] MEDS: DRONABINOL 2.5 MG CAPSULE PO SCH ×2 (09:26→17:50)
[2019-03-28] MEDS: LINACLOTIDE 145 MCG CAPSULE PO SCH (09:26)
[2019-03-28] MEDS: POTASSIUM CHLORIDE 20 MEQ TABLET PO SCH (09:27)
[2019-03-28] MEDS: predniSONE 20 MG TABLET PO SCH (09:27)
[2019-03-28] MEDS: PARoxetine 10 MG TABLET PO SCH (09:27)
[2019-03-28] MEDS: METOPROLOL TARTRATE 50 MG TABLET PO SCH ×2 (09:27→20:58)
[2019-03-28] MEDS: AMIODARONE 200 MG TABLET PO SCH ×2 (09:27→20:58)
[2019-03-28] MEDS: miSOPROStol 200 MCG TABLET PO SCH ×4 (09:27→20:57)
[2019-03-28] MEDS: DOCUSATE SODIUM 100 MG CAPSULE PO SCH ×2 (09:27→20:58)
[2019-03-28] MEDS: MAGNESIUM OXIDE 400 MG TABLET PO SCH (09:28)
[2019-03-28] MEDS: CYPROHEPTADINE 4 MG TABLET PO SCH ×3 (09:28→20:58)
[2019-03-28] MEDS: SUCRALFATE 1 GM/10 ML UDCUP PO SCH ×4 (09:41→20:58)
[2019-03-28] MEDS: LACTULOSE 20 GM/30 ML UDCUP PO SCH ×2 (09:41→20:54)
[2019-03-28] MEDS: MEGESTROL 400 MG/10 ML UDCUP PO SCH ×2 (12:28→20:56)
[2019-03-28] MEDS ORDERED: MENTHOL/ZINC OXIDE OINT 71 GM JAR TOP PRN (15:12)
[2019-03-28] MEDS: ASPIRIN 325 MG TABLET PO SCH (20:57)
[2019-03-28] MEDS ORDERED: MIRTAZAPINE 15 MG TABLET PO SCH (21:00)
[2019-03-28] MEDS ORDERED: SENNA 8.6 MG TABLET PO SCH (21:00)
[2019-03-29] MEDS: ALBUTEROL/IPRATROPIUM 3 ML NEB RESP TX SCH ×4 (01:02→19:19)
[2019-03-29 07:14] LABS: Albumin 1.6 G/DL (3.4-5.0); Bilirubin,Total 0.7 MG/DL (0.2-1.0); Calcium 7.8 MG/DL (8.5-10.1); Osmolality,Calculated 279.7 MOS/KG (273-304); Total Protein 4.7 G/DL (6.4-8.3)
[2019-03-29] MEDS: SUCRALFATE 1 GM/10 ML UDCUP PO SCH ×4 (08:02→21:51)
[2019-03-29] MEDS: miSOPROStol 200 MCG TABLET PO SCH ×4 (08:03→21:51)
[2019-03-29] MEDS: DRONABINOL 2.5 MG CAPSULE PO SCH ×2 (08:03→16:31)
[2019-03-29] MEDS: LINACLOTIDE 145 MCG CAPSULE PO SCH (08:03)
[2019-03-29] MEDS: LACTULOSE 20 GM/30 ML UDCUP PO SCH ×2 (09:37→21:52)
[2019-03-29] MEDS: POLYETHYLENE GLYCOL POWDER 17 GM PACK PO SCH (09:37)
[2019-03-29] MEDS: DOCUSATE SODIUM 100 MG CAPSULE PO SCH ×2 (09:37→21:52)
[2019-03-29] MEDS: PARoxetine 10 MG TABLET PO SCH (09:46)
[2019-03-29] MEDS: METOPROLOL TARTRATE 50 MG TABLET PO SCH ×2 (09:47→21:51)
[2019-03-29] MEDS: AMIODARONE 200 MG TABLET PO SCH ×2 (09:47→21:51)
[2019-03-29] MEDS: predniSONE 20 MG TABLET PO SCH (09:47)
[2019-03-29] MEDS: POTASSIUM CHLORIDE 20 MEQ TABLET PO SCH (09:48)
[2019-03-29] MEDS: CYPROHEPTADINE 4 MG TABLET PO SCH ×2 (09:48→14:57)
[2019-03-29] MEDS: MEGESTROL 400 MG/10 ML UDCUP PO SCH ×2 (09:48→21:51)
[2019-03-29] MEDS: MAGNESIUM OXIDE 400 MG TABLET PO SCH (09:48)
[2019-03-29] MEDS ORDERED: SENNA 8.6 MG TABLET PO PRN (17:48)
[2019-03-29] MEDS: ASPIRIN 325 MG TABLET PO SCH (21:51)
[2019-03-30] MEDS: ALBUTEROL/IPRATROPIUM 3 ML NEB RESP TX SCH ×4 (00:25→19:14)
[2019-03-30 06:23] LABS: Albumin 1.6 G/DL (3.4-5.0); Bilirubin,Total 0.5 MG/DL (0.2-1.0); Calcium 7.9 MG/DL (8.5-10.1); Osmolality,Calculated 275.7 MOS/KG (273-304); Total Protein 4.8 G/DL (6.4-8.3)
[2019-03-30] MEDS: DRONABINOL 2.5 MG CAPSULE PO SCH ×2 (07:33→16:24)
[2019-03-30] MEDS: SUCRALFATE 1 GM/10 ML UDCUP PO SCH ×4 (07:33→21:02)
[2019-03-30] MEDS: miSOPROStol 200 MCG TABLET PO SCH ×4 (07:33→21:02)
[2019-03-30] MEDS: LINACLOTIDE 145 MCG CAPSULE PO SCH (07:34)
[2019-03-30] MEDS: MAGNESIUM OXIDE 400 MG TABLET PO SCH (09:07)
[2019-03-30] MEDS: MEGESTROL 400 MG/10 ML UDCUP PO SCH ×2 (09:07→21:02)
[2019-03-30] MEDS: POTASSIUM CHLORIDE 20 MEQ TABLET PO SCH (09:08)
[2019-03-30] MEDS: AMIODARONE 200 MG TABLET PO SCH ×2 (09:08→21:02)
[2019-03-30] MEDS: predniSONE 20 MG TABLET PO SCH (09:08)
[2019-03-30] MEDS: PARoxetine 10 MG TABLET PO SCH (09:08)
[2019-03-30] MEDS: METOPROLOL TARTRATE 50 MG TABLET PO SCH ×2 (09:08→21:02)
[2019-03-30] MEDS: DOCUSATE SODIUM 100 MG CAPSULE PO SCH ×2 (09:09→21:04)
[2019-03-30] MEDS: POLYETHYLENE GLYCOL POWDER 17 GM PACK PO SCH (09:09)
[2019-03-30] MEDS: LACTULOSE 20 GM/30 ML UDCUP PO SCH ×2 (09:09→21:04)
[2019-03-30] MEDS: ASPIRIN 325 MG TABLET PO SCH (21:02)
[2019-03-31] MEDS: ALBUTEROL/IPRATROPIUM 3 ML NEB RESP TX SCH ×4 (01:20→20:36)
[2019-03-31 06:05] LABS: Alanine Aminotransferase 13 U/L (16-61); Albumin 1.6 G/DL (3.4-5.0); Alkaline Phosphatase 62 U/L (45-117); Aspartate Amino Transferase 10 U/L (0-37); Bilirubin,Total < 0.39 MG/DL (0.2-1.0); Blood Urea Nitrogen 13 MG/DL (7-18); Calcium 7.7 MG/DL (8.5-10.1); Glucose 152 MG/DL (74-106); Osmolality,Calculated 270.2 MOS/KG (273-304); Total Protein 4.8 G/DL (6.4-8.3)
[2019-03-31] MEDS: POLYETHYLENE GLYCOL POWDER 17 GM PACK PO SCH (08:23)
[2019-03-31] MEDS: LACTULOSE 20 GM/30 ML UDCUP PO SCH ×2 (08:23→20:40)
[2019-03-31] MEDS: DOCUSATE SODIUM 100 MG CAPSULE PO SCH (08:23)
[2019-03-31] MEDS: DRONABINOL 2.5 MG CAPSULE PO SCH ×2 (08:57→17:18)
[2019-03-31] MEDS: LINACLOTIDE 145 MCG CAPSULE PO SCH (08:57)
[2019-03-31] MEDS: SUCRALFATE 1 GM/10 ML UDCUP PO SCH ×4 (08:57→20:40)
[2019-03-31] MEDS: METOPROLOL TARTRATE 50 MG TABLET PO SCH ×2 (08:58→20:40)
[2019-03-31] MEDS: PARoxetine 10 MG TABLET PO SCH (08:58)
[2019-03-31] MEDS: miSOPROStol 200 MCG TABLET PO SCH ×4 (08:58→20:40)
[2019-03-31] MEDS: MAGNESIUM OXIDE 400 MG TABLET PO SCH (08:58)
[2019-03-31] MEDS: POTASSIUM CHLORIDE 20 MEQ TABLET PO SCH (08:58)
[2019-03-31] MEDS: predniSONE 20 MG TABLET PO SCH (08:59)
[2019-03-31] MEDS: AMIODARONE 200 MG TABLET PO SCH ×2 (08:59→20:40)
[2019-03-31] MEDS: MEGESTROL 400 MG/10 ML UDCUP PO SCH ×2 (09:00→20:41)
[2019-03-31] MEDS: ASPIRIN 325 MG TABLET PO SCH (20:40)
[2019-03-31] MEDS: PANTOPRAZOLE 40 MG TABLET PO SCH (20:41)
[2019-04-01] MEDS: ALBUTEROL/IPRATROPIUM 3 ML NEB RESP TX SCH ×4 (00:55→19:41)
[2019-04-01 05:17] LABS: Basophils % 0.1 % (0.0-0.8); Hematocrit 34.9 VOL% (42.0-52.0); Hemoglobin 11.6 GM/DL (14.0-18.0); Immature Granulocytes % 0.8 %; Immature Granulocytes Absolute 0.11 #; Lymphocytes # 0.5 10*3/uL (1.4-4.0); Lymphocytes % 3.7 % (21.2-54.2); Mean Corpuscular HGB Conc 33.2 GM/DL (32-36); Mean Corpuscular Volume 92.8 FL (87-102); Mean Platelet Volume 9.7 FL (9.6-12.0); Monocytes % 7.4 % (1.7-12.7); Platelet Count 196 T/CUMM (130-400); Red Blood Count 3.76 MC/CUMM (3.8-5.5); White Blood Count 13.5 T/CUMM (4-12)
[2019-04-01 05:38] LABS: Band Neutrophils 1 % (0-10); Hypochromasia 1+; Lymphocytes 5 % (20-55); Microcytosis Slight; Platelet Estimate Adequate; Segmented Neutrophils 89 % (50-85); Total Cells Counted 100
[2019-04-01 05:57] LABS: Albumin 1.8 G/DL (3.4-5.0); Bilirubin,Total 1.2 MG/DL (0.2-1.0); Total Protein 5.2 G/DL (6.4-8.3)
[2019-04-01] MEDS: MEGESTROL 400 MG/10 ML UDCUP PO SCH ×2 (09:19→22:12)
[2019-04-01] MEDS: miSOPROStol 200 MCG TABLET PO SCH ×4 (09:19→22:12)
[2019-04-01] MEDS: SUCRALFATE 1 GM/10 ML UDCUP PO SCH ×4 (09:19→22:13)
[2019-04-01] MEDS: PARoxetine 10 MG TABLET PO SCH (09:19)
[2019-04-01] MEDS: MAGNESIUM OXIDE 400 MG TABLET PO SCH (09:19)
[2019-04-01] MEDS: LINACLOTIDE 145 MCG CAPSULE PO SCH (09:20)
[2019-04-01] MEDS: DRONABINOL 2.5 MG CAPSULE PO SCH ×2 (09:20→16:45)
[2019-04-01] MEDS: POTASSIUM CHLORIDE 20 MEQ TABLET PO SCH (09:20)
[2019-04-01] MEDS: LACTULOSE 20 GM/30 ML UDCUP PO SCH (09:21)
[2019-04-01] MEDS: PANTOPRAZOLE 40 MG TABLET PO SCH ×2 (09:21→22:12)
[2019-04-01] MEDS: METOPROLOL TARTRATE 50 MG TABLET PO SCH ×2 (09:21→22:12)
[2019-04-01] MEDS: predniSONE 20 MG TABLET PO SCH (09:21)
[2019-04-01] MEDS: AMIODARONE 200 MG TABLET PO SCH ×2 (09:21→22:13)
[2019-04-01] MEDS: MAGNESIUM SULF RIDER 2 GM in PREMIX 1 EACH IV PRN (09:22)
[2019-04-01] MEDS: POLYETHYLENE GLYCOL POWDER 17 GM PACK PO SCH (09:22)
[2019-04-01] MEDS: ACETAMINOPHEN 325 MG TABLET PO PRN (09:38)
[2019-04-01] MEDS: CLORAZEPATE 3.75 MG TABLET PO SCH ×2 (16:45→22:12)
[2019-04-01] MEDS: ASPIRIN 325 MG TABLET PO SCH (22:12)
[2019-04-02] MEDS: ALBUTEROL/IPRATROPIUM 3 ML NEB RESP TX SCH ×4 (00:29→20:24)
[2019-04-02 06:02] LABS: Basophils % 0.1 % (0.0-0.8); Hematocrit 34.3 VOL% (42.0-52.0); Hemoglobin 11.6 GM/DL (14.0-18.0); Immature Granulocytes % 0.7 %; Lymphocytes # 0.4 10*3/uL (1.4-4.0); Lymphocytes % 2.6 % (21.2-54.2); Mean Corpuscular HGB Conc 33.8 GM/DL (32-36); Mean Corpuscular Volume 91.5 FL (87-102); Mean Platelet Volume 9.9 FL (9.6-12.0); Monocytes % 5.7 % (1.7-12.7); Neutrophils % 90.9 % (38.7-73.9); Platelet Count 201 T/CUMM (130-400); Red Blood Count 3.75 MC/CUMM (3.8-5.5); White Blood Count 14.4 T/CUMM (4-12)
[2019-04-02 06:11] LABS: Albumin 1.8 G/DL (3.4-5.0); Bilirubin,Total 0.7 MG/DL (0.2-1.0); Osmolality,Calculated 280.7 MOS/KG (273-304); Total Protein 5.1 G/DL (6.4-8.3)
[2019-04-02 06:27] LABS: Band Neutrophils 2 % (0-10); Hypochromasia 1+; Lymphocytes 9 % (20-55); Microcytosis Slight; Nucleated Red Blood Cells 1 (0-5); Platelet Estimate Adequate; Segmented Neutrophils 79 % (50-85); Total Cells Counted 100
[2019-04-02] MEDS: DRONABINOL 2.5 MG CAPSULE PO SCH ×2 (07:29→16:31)
[2019-04-02] MEDS: SUCRALFATE 1 GM/10 ML UDCUP PO SCH ×4 (07:29→21:31)
[2019-04-02] MEDS: miSOPROStol 200 MCG TABLET PO SCH ×4 (07:29→21:31)
[2019-04-02] MEDS: MAGNESIUM OXIDE 400 MG TABLET PO SCH (09:03)
[2019-04-02] MEDS: MEGESTROL 400 MG/10 ML UDCUP PO SCH ×2 (09:03→21:30)
[2019-04-02] MEDS: PARoxetine 10 MG TABLET PO SCH (09:03)
[2019-04-02] MEDS: METOPROLOL TARTRATE 50 MG TABLET PO SCH ×2 (09:04→21:31)
[2019-04-02] MEDS: POTASSIUM CHLORIDE 20 MEQ TABLET PO SCH (09:04)
[2019-04-02] MEDS: predniSONE 20 MG TABLET PO SCH (09:06)
[2019-04-02] MEDS: PANTOPRAZOLE 40 MG TABLET PO SCH ×2 (09:06→21:31)
[2019-04-02] MEDS: CLORAZEPATE 3.75 MG TABLET PO SCH ×3 (09:06→21:58)
[2019-04-02] MEDS: AMIODARONE 200 MG TABLET PO SCH ×2 (09:11→21:31)
[2019-04-02] MEDS: ASPIRIN 325 MG TABLET PO SCH (21:31)
[2019-04-03] MEDS: ALBUTEROL/IPRATROPIUM 3 ML NEB RESP TX SCH ×4 (00:17→19:45)
[2019-04-03 05:52] LABS: Albumin 1.8 G/DL (3.4-5.0); Bilirubin,Total 0.5 MG/DL (0.2-1.0); Calcium 8.3 MG/DL (8.5-10.1); Osmolality,Calculated 271.1 MOS/KG (273-304); Total Protein 5.2 G/DL (6.4-8.3)
[2019-04-03] MEDS: SUCRALFATE 1 GM/10 ML UDCUP PO SCH ×4 (07:19→20:45)
[2019-04-03] MEDS: miSOPROStol 200 MCG TABLET PO SCH ×4 (07:20→20:46)
[2019-04-03] MEDS: DRONABINOL 2.5 MG CAPSULE PO SCH ×2 (07:20→16:13)
[2019-04-03] MEDS: MEGESTROL 400 MG/10 ML UDCUP PO SCH ×2 (08:49→20:45)
[2019-04-03] MEDS: POTASSIUM CHLORIDE 20 MEQ TABLET PO SCH (08:49)
[2019-04-03] MEDS: AMIODARONE 200 MG TABLET PO SCH ×2 (08:50→20:46)
[2019-04-03] MEDS: CLORAZEPATE 3.75 MG TABLET PO SCH ×3 (08:50→21:39)
[2019-04-03] MEDS: METOPROLOL TARTRATE 50 MG TABLET PO SCH ×2 (08:50→20:46)
[2019-04-03] MEDS: PARoxetine 10 MG TABLET PO SCH (08:50)
[2019-04-03] MEDS: MAGNESIUM OXIDE 400 MG TABLET PO SCH (08:50)
[2019-04-03] MEDS: PANTOPRAZOLE 40 MG TABLET PO SCH ×2 (08:50→20:46)
[2019-04-03] MEDS: predniSONE 20 MG TABLET PO SCH (08:50)
[2019-04-03] MEDS: ASPIRIN 325 MG TABLET PO SCH (20:45)
[2019-04-04] MEDS: ALBUTEROL/IPRATROPIUM 3 ML NEB RESP TX SCH ×4 (01:44→19:00)
[2019-04-04] MEDS: miSOPROStol 200 MCG TABLET PO SCH ×4 (09:38→20:28)
[2019-04-04] MEDS: POTASSIUM CHLORIDE 20 MEQ TABLET PO SCH ×2 (09:38→17:35)
[2019-04-04] MEDS: MAGNESIUM OXIDE 400 MG TABLET PO SCH (09:39)
[2019-04-04] MEDS: PANTOPRAZOLE 40 MG TABLET PO SCH ×2 (09:39→20:28)
[2019-04-04] MEDS: PARoxetine 10 MG TABLET PO SCH (09:39)
[2019-04-04] MEDS: predniSONE 20 MG TABLET PO SCH (09:39)
[2019-04-04] MEDS: METOPROLOL TARTRATE 50 MG TABLET PO SCH ×2 (09:39→20:28)
[2019-04-04] MEDS: AMIODARONE 200 MG TABLET PO SCH (09:39)
[2019-04-04] MEDS: DRONABINOL 2.5 MG CAPSULE PO SCH ×2 (09:39→17:39)
[2019-04-04] MEDS: MAGNESIUM SULF RIDER 2 GM in PREMIX 1 EACH IV PRN (09:59)
[2019-04-04] MEDS: MEGESTROL 400 MG/10 ML UDCUP PO SCH ×2 (10:01→20:28)
[2019-04-04] MEDS: SUCRALFATE 1 GM/10 ML UDCUP PO SCH ×4 (10:01→20:28)
[2019-04-04] MEDS: CLORAZEPATE 3.75 MG TABLET PO SCH ×3 (11:40→20:28)
[2019-04-04] MEDS: ASPIRIN 325 MG TABLET PO SCH (20:28)
[2019-04-05] MEDS: ALBUTEROL/IPRATROPIUM 3 ML NEB RESP TX SCH ×4 (01:34→19:50)
[2019-04-05] MEDS: SUCRALFATE 1 GM/10 ML UDCUP PO SCH ×4 (09:04→21:06)
[2019-04-05] MEDS: MEGESTROL 400 MG/10 ML UDCUP PO SCH ×2 (09:04→21:04)
[2019-04-05] MEDS: AMIODARONE 200 MG TABLET PO SCH (09:05)
[2019-04-05] MEDS: MAGNESIUM OXIDE 400 MG TABLET PO SCH (09:05)
[2019-04-05] MEDS: PANTOPRAZOLE 40 MG TABLET PO SCH ×2 (09:05→21:04)
[2019-04-05] MEDS: METOPROLOL TARTRATE 50 MG TABLET PO SCH ×3 (09:05→21:30)
[2019-04-05] MEDS: CLORAZEPATE 3.75 MG TABLET PO SCH ×3 (09:05→21:00)
[2019-04-05] MEDS: miSOPROStol 200 MCG TABLET PO SCH ×4 (09:05→21:05)
[2019-04-05] MEDS: DRONABINOL 2.5 MG CAPSULE PO SCH ×2 (09:05→16:22)
[2019-04-05] MEDS: PARoxetine 10 MG TABLET PO SCH (09:05)
[2019-04-05] MEDS: predniSONE 20 MG TABLET PO SCH (09:12)
[2019-04-05] MEDS: POTASSIUM CHLORIDE 20 MEQ TABLET PO SCH (09:12)
[2019-04-05] MEDS ORDERED: SODIUM CHLORIDE 0.9% 500 ML IV ONE (21:50)
[2019-04-05] MEDS: SODIUM CHLORIDE 0.9% 1,000 ML IV SCH (22:28)
[2019-04-05] MEDS: ASPIRIN 325 MG TABLET PO SCH (22:42)
[2019-04-06] MEDS: ALBUTEROL/IPRATROPIUM 3 ML NEB RESP TX SCH ×4 (00:24→19:58)
[2019-04-06] MEDS: ACETAMINOPHEN 325 MG TABLET PO PRN ×2 (00:38→10:49)
[2019-04-06] MEDS: miSOPROStol 200 MCG TABLET PO SCH ×4 (10:02→20:39)
[2019-04-06] MEDS: SUCRALFATE 1 GM/10 ML UDCUP PO SCH ×4 (10:02→20:39)
[2019-04-06] MEDS: CLORAZEPATE 3.75 MG TABLET PO SCH ×3 (10:38→23:21)
[2019-04-06] MEDS: DRONABINOL 2.5 MG CAPSULE PO SCH ×2 (10:39→16:19)
[2019-04-06] MEDS: PARoxetine 10 MG TABLET PO SCH (10:40)
[2019-04-06] MEDS: PANTOPRAZOLE 40 MG TABLET PO SCH ×2 (10:50→20:39)
[2019-04-06] MEDS: MEGESTROL 400 MG/10 ML UDCUP PO SCH ×2 (10:50→20:39)
[2019-04-06] MEDS: POTASSIUM CHLORIDE 20 MEQ TABLET PO SCH (10:50)
[2019-04-06] MEDS: MAGNESIUM OXIDE 400 MG TABLET PO SCH (10:50)
[2019-04-06] MEDS: AMIODARONE 200 MG TABLET PO SCH (10:50)
[2019-04-06] MEDS: predniSONE 20 MG TABLET PO SCH (10:51)
[2019-04-06] MEDS: SODIUM CHLORIDE 0.9% 500 ML IV SCH ×2 (11:05→12:06)
[2019-04-06] MEDS: METOPROLOL TARTRATE 50 MG TABLET PO SCH (12:07)
[2019-04-06] MEDS: SODIUM CHLORIDE 0.9% 1,000 ML IV SCH ×2 (12:33→19:18)
[2019-04-06] MEDS: ASPIRIN 325 MG TABLET PO SCH (20:39)
[2019-04-06] MEDS ORDERED: SODIUM CHLORIDE 0.9% 500 ML IV ONE (21:26)
[2019-04-06] MEDS ORDERED: LEVALBUTEROL 1.25 MG/3 ML NEB RESP TX SCH (23:00)
[2019-04-07] MEDS: LEVALBUTEROL 1.25 MG/3 ML NEB RESP TX SCH ×4 (02:12→19:53)
[2019-04-07 05:07] LABS: Basophils % 0.1 % (0.0-0.8); Hematocrit 30.2 VOL% (42.0-52.0); Hemoglobin 9.9 GM/DL (14.0-18.0); Immature Granulocytes % 0.7 %; Immature Granulocytes Absolute 0.07 #; Lymphocytes # 0.2 10*3/uL (1.4-4.0); Lymphocytes % 2.1 % (21.2-54.2); Mean Corpuscular HGB Conc 32.8 GM/DL (32-36); Mean Platelet Volume 9.5 FL (9.6-12.0); Monocytes % 4.2 % (1.7-12.7); Neutrophils % 92.9 % (38.7-73.9); Platelet Count 202 T/CUMM (130-400); Red Blood Count 3.18 MC/CUMM (3.8-5.5); Red Cell Distribution Width 16.4 % (9.3-17.3); White Blood Count 9.8 T/CUMM (4-12)
[2019-04-07 05:24] LABS: Osmolality,Calculated 277.8 MOS/KG (273-304)
[2019-04-07 05:40] LABS: Band Neutrophils 2 % (0-10); Hypochromasia Slight; Lymphocytes 2 % (20-55); Platelet Estimate Adequate; Segmented Neutrophils 92 % (50-85); Total Cells Counted 100
[2019-04-07 05:41] LABS: Microcytosis Slight
[2019-04-07] MEDS: DRONABINOL 2.5 MG CAPSULE PO SCH (07:37)
[2019-04-07] MEDS: miSOPROStol 200 MCG TABLET PO SCH ×4 (07:37→20:28)
[2019-04-07] MEDS: SUCRALFATE 1 GM/10 ML UDCUP PO SCH ×4 (07:37→20:28)
[2019-04-07] MEDS: PARoxetine 10 MG TABLET PO SCH (08:50)
[2019-04-07] MEDS: POTASSIUM CHLORIDE 20 MEQ TABLET PO SCH (08:51)
[2019-04-07] MEDS: AMIODARONE 200 MG TABLET PO SCH (08:51)
[2019-04-07] MEDS: PANTOPRAZOLE 40 MG TABLET PO SCH ×2 (08:51→20:27)
[2019-04-07] MEDS: predniSONE 20 MG TABLET PO SCH (08:51)
[2019-04-07] MEDS: MAGNESIUM OXIDE 400 MG TABLET PO SCH (08:51)
[2019-04-07] MEDS: MEGESTROL 400 MG/10 ML UDCUP PO SCH ×2 (08:52→20:29)
[2019-04-07] MEDS: SODIUM CHLORIDE 0.9% 1,000 ML IV SCH ×2 (08:54→18:30)
[2019-04-07] MEDS ORDERED: METOPROLOL TARTRATE 5 MG/5 ML VIAL IV ONE (09:01)
[2019-04-07] MEDS ORDERED: POTASSIUM CHLORIDE 20 MEQ/15 ML UDCUP PO ONE (12:57)
[2019-04-07] MEDS ORDERED: DIGOXIN 0.5 MG/2 ML AMP IV ONE ×2 (13:03→20:00)
[2019-04-07] MEDS ORDERED: METOPROLOL TARTRATE 5 MG/5 ML VIAL IV PRN (13:24)
[2019-04-07] MEDS: ASPIRIN 325 MG TABLET PO SCH (20:27)
[2019-04-08] MEDS: LEVALBUTEROL 1.25 MG/3 ML NEB RESP TX SCH ×4 (02:04→20:42)
[2019-04-08 06:02] LABS: Calcium 7.8 MG/DL (8.5-10.1); Osmolality,Calculated 280.1 MOS/KG (273-304)
[2019-04-08] MEDS: SUCRALFATE 1 GM/10 ML UDCUP PO SCH ×4 (06:55→20:41)
[2019-04-08] MEDS ORDERED: MORPHINE 4 MG/1 ML VIAL IV ONE (08:33)
[2019-04-08] MEDS: MEGESTROL 400 MG/10 ML UDCUP PO SCH ×2 (08:38→20:41)
[2019-04-08] MEDS: AMIODARONE 200 MG TABLET PO SCH (08:38)
[2019-04-08] MEDS: MAGNESIUM OXIDE 400 MG TABLET PO SCH (08:38)
[2019-04-08] MEDS: miSOPROStol 200 MCG TABLET PO SCH ×4 (08:38→20:42)
[2019-04-08] MEDS: PANTOPRAZOLE 40 MG TABLET PO SCH ×2 (08:38→20:42)
[2019-04-08] MEDS: PARoxetine 10 MG TABLET PO SCH (08:38)
[2019-04-08] MEDS: predniSONE 20 MG TABLET PO SCH (08:38)
[2019-04-08] MEDS: POTASSIUM CHLORIDE 20 MEQ/15 ML UDCUP PO SCH (08:39)
[2019-04-08] MEDS ORDERED: POTASSIUM CHLORIDE 20 MEQ/15 ML UDCUP PO ONE (10:14)
[2019-04-08] MEDS: METOPROLOL TARTRATE 25 MG TABLET PO SCH ×2 (11:56→20:42)
[2019-04-08] MEDS: MAGNESIUM SULF RIDER 2 GM in PREMIX 1 EACH IV PRN (11:58)
[2019-04-08] MEDS: MAGNESIUM GLUCONATE 200 MG/ML 30 ML/BOTTLE PO SCH ×2 (11:58→20:41)
[2019-04-08] MEDS ORDERED: DIGOXIN 0.125 MG TABLET PO SCH (13:00)
[2019-04-08] MEDS: SODIUM CHLORIDE 0.9% 1,000 ML IV SCH (15:41)
[2019-04-08] MEDS ORDERED: MORPHINE 4 MG/1 ML VIAL IV PRN (17:05)
[2019-04-08] MEDS: ASPIRIN 325 MG TABLET PO SCH (20:42)
[2019-04-09] MEDS: LEVALBUTEROL 1.25 MG/3 ML NEB RESP TX SCH ×2 (00:48→07:18)
[2019-04-09 05:38] LABS: Basophils % 0.1 % (0.0-0.8); Eosinophils % 0.5 % (0.00-10.9); Hematocrit 31.9 VOL% (42.0-52.0); Hemoglobin 10.4 GM/DL (14.0-18.0); Immature Granulocytes % 0.9 %; Immature Granulocytes Absolute 0.07 #; Lymphocytes # 0.3 10*3/uL (1.4-4.0); Lymphocytes % 3.4 % (21.2-54.2); Mean Corpuscular HGB Conc 32.6 GM/DL (32-36); Mean Corpuscular Volume 94.9 FL (87-102); Mean Platelet Volume 9.6 FL (9.6-12.0); Monocytes % 7.2 % (1.7-12.7); Neutrophils % 87.9 % (38.7-73.9); Platelet Count 234 T/CUMM (130-400); Red Blood Count 3.36 MC/CUMM (3.8-5.5); White Blood Count 7.6 T/CUMM (4-12)
[2019-04-09 05:55] LABS: Band Neutrophils 2 % (0-10); Hypochromasia 1+; Lymphocytes 3 % (20-55); Segmented Neutrophils 90 % (50-85); Total Cells Counted 100
[2019-04-09 05:56] LABS: Microcytosis Slight; Ovalocytes Slight; Platelet Estimate Normal
[2019-04-09 06:16] LABS: Albumin 1.7 G/DL (3.4-5.0); Bilirubin,Total 0.5 MG/DL (0.2-1.0); Calcium 8.1 MG/DL (8.5-10.1); Osmolality,Calculated 270.8 MOS/KG (273-304); Total Protein 5.1 G/DL (6.4-8.3)
[2019-04-09] MEDS ORDERED: METOPROLOL TARTRATE 25 MG TABLET PO SCH (08:43)
[2019-04-09] MEDS: predniSONE 20 MG TABLET PO SCH (09:10)
[2019-04-09] MEDS: AMIODARONE 200 MG TABLET PO SCH (09:10)
[2019-04-09] MEDS: PANTOPRAZOLE 40 MG TABLET PO SCH (09:10)
[2019-04-09] MEDS: MAGNESIUM OXIDE 400 MG TABLET PO SCH ×2 (09:10→17:00)
[2019-04-09] MEDS: PARoxetine 10 MG TABLET PO SCH (09:10)
[2019-04-09] MEDS: miSOPROStol 200 MCG TABLET PO SCH ×3 (09:10→17:01)
[2019-04-09] MEDS: SUCRALFATE 1 GM/10 ML UDCUP PO SCH ×3 (09:11→17:00)
[2019-04-09] MEDS: POTASSIUM CHLORIDE 20 MEQ/15 ML UDCUP PO SCH (09:11)
[2019-04-09] MEDS: MEGESTROL 400 MG/10 ML UDCUP PO SCH (09:11)
[2019-04-09] MEDS: MAGNESIUM GLUCONATE 200 MG/ML 30 ML/BOTTLE PO SCH (09:25)
[2019-04-09] MEDS: SODIUM CHLORIDE 0.9% 1,000 ML IV SCH (13:12)
[2019-04-09 15:51] VITALS: BP 117/71
[2019-04-09] MEDS ORDERED: HEPARIN LOCK FLUSH 500 UNIT/5 ML SYRINGE IV ONE (16:04)
== END 2019-04-09 16:25 | disposition hospice, home (50) | DRG 180 ==
LOC: N.4E → INTOOBSV 11:02 → OBSVTOIN 11:02 → SUATTDRO 03-14 10:30 → SUPCPDRO 03-14 10:30 → N.TELEN 03-18 09:04 → N.4E 03-20 10:10
PROVIDERS: ADMIT Specialist